=== PATIENT | male | born 2000 | race Two or more races ===

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

== ENCOUNTER 2023-04-07 04:53 | Emergency (ER) | payer SELFPAY ==
[~2023-04-07] VITALS: Ht 175.3 cm; Wt 65.8 kg
[~2023-04-07 04:53] MED LIST: CYCL5TAB PO; DIPH-588 PO; FAMO20TA8 PO; PRED50TA PO
[2023-04-07] MEDS ORDERED: IBUP-1955 PO (06:42)
[2023-04-07 06:50] LABS: HEMOGLOBIN 16.1 g/dL (13.5-17.5); RED BLOOD CELL COUNT(AUTO) 5.44 MIL/uL (4.5-6.0)
[2023-04-07] MEDS ORDERED: KETOROLAC TROMETHAMINE 15 MG/ML VIAL ONE (06:57)
[2023-04-07 06:58] LABS: BASOPHILS % (AUTO) 0.2 % (0.0-2.0); EOSINOPHILS # (AUTO) 0.1 K/uL (0.0-0.7); EOSINOPHILS % (AUTO) 1.6 % (0.0-6.0); HEMATOCRIT 47 % (39-51); LYMPHOCYTES # (AUTO) 1.9 K/uL (0.8-4.8); LYMPHOCYTES % (AUTO) 41.7 % (20.0-44.0); MEAN CORPUSCULAR HEMOGLOBIN 30 PG (26.0-33.0); MEAN CORPUSCULAR HGB CONC 34 g/dl (31.0-36.0); MEAN CORPUSCULAR VOLUME 87 fL (80-96); MONOCYTES # (AUTO) 0.3 K/uL (0.1-1.30); MONOCYTES % (AUTO) 7.7 % (2.0-12.0); NEUTROPHILS # (AUTO) 2.2 K/uL (1.8-8.9); NEUTROPHILS % (AUTO) 48.8 % (43.0-81.0); PLATELET COUNT (AUTO) 232 K/uL (150-450); RED CELL DISTRIBUTION WIDTH 14.4 % (11.5-15.0); WHITE BLOOD COUNT (AUTO) 4.4 K/uL (4.3-11.0)
[2023-04-07] MEDS ORDERED: KETOROLAC TROMETHAMINE 15 MG/ML VIAL IV ONE (07:00)
[2023-04-07 07:22] LABS: CALCIUM, SERUM 9.5 mg/dL (8.5-10.1); CARBON DIOXIDE 28 mmol/L (21-32); CHLORIDE 101 mmol/L (98-107); CREATININE 0.7 mg/dL (0.6-1.3); GLUCOSE 102 mg/dL (74-106); POTASSIUM 3.8 mmol/L (3.5-5.1); SODIUM SERUM 139 mmol/L (136-145); UREA NITROGEN, BLOOD 9 mg/dL (7-18)
[2023-04-07 08:01] VITALS: BP 130/77; TEMP 98.3; O2SAT 100
== END 2023-04-07 08:02 | disposition home or self-care (01) ==
LOC: ER 04:57
DX: R07.89 Other chest pain (principal)
CPT/HCPCS: 99285; 96374; 71045; 93005 ×2; 85025; 80048; 36415; 84484; J1885